=== PATIENT | male | born 1995 | race Caucasian/White ===

== ENCOUNTER 2019-07-26 07:19 | Observation (INO) ==
[2019-07-26] MEDS ORDERED: ONDANSETRON INJ 2 MG/ML 2 ML VIAL IV STA (07:34)
[2019-07-26] MEDS ORDERED: KETOROLAC 30 MG/ML VIAL IV STA (07:34)
--- NOTE | 2019-07-26 07:39 | Emergency Department Note ---
History of Present Illness General Chief complaint: Abdominal Pain Stated complaint: ABD PAIN Time Seen by Provider: 07/26/19 07:26 History of Present Illness Maximum Pain Intensity: 8 This is a 23-year-old male that presents to the emergency department via private vehicle accompanied by male with complaints of "abdominal pain". Patient states that yesterday evening he went to the [employer], and went to [employer] for dinner and had dumplings. He states that this is not out of the usual and then laid down around 10 PM and began with some left-sided abdominal pain. This was associated by nausea. He denies any spicy foods. No fevers, chills, vomiting. He states that it persists and nothing has been found to alleviate this. No exacerbating factors. He points to the left side of the abdomen as a location of pain. No abdominal surgeries. He notes some mild constipation throughout the evening with multiple trips to the bathroom to pass stool but no diarrhea. No blood in the stool. Home Medications Home Medications Medication Instructions Recorded Confirmed Type amlodipine 10 mg PO DAILY 07/26/19 07/26/19 History hydrocodone-acetaminophen [Vickery] 1 - 2 tab PO Q6H PRN #30 tab 07/26/19 Rx methylphenidate HCl [Ritalin] 10 mg PO DAILY 07/26/19 07/26/19 History propranolol 80 mg PO DAILY 07/26/19 07/26/19 History Allergies Allergy/AdvReac Type Severity Reaction Status Date / Time No Known Allergies Allergy Unverified 07/26/19 08:19 Past Med/Surg History Medical History HTN (hypertension) Morbid obesity Surgical History Hx of arthroscopy of knee S/P cystoscopy Social History Feels Safe at Home: Yes Smoking Status: Never smoker Review of Systems A total of 10 systems reviewed and were otherwise negative Physical Exam Vital Signs Vital Signs - 24 hr 07/26/19 07:25 07/26/19 09:19 07/26/19 11:00 Temperature 36.7 C Temperature Source Oral Sepsis Recent Fever Within 48 Hours No Sepsis New/Unexplained Change in Mental Status No Sepsis Action Taken by Nursing No Action Required Pulse Rate 72 Pulse Rate [Apical] 78 78 Respiratory Rate 20 16 16 Respiratory Effort / Characteristics Respiratory Depth Respiratory Pattern Blood Pressure 157/105 H Blood Pressure [Left Arm] 150/96 H 140/88 Blood Pressure [Right Arm] Blood Pressure Mean 122 Blood Pressure Mean [Left Arm] 114 105 Blood Pressure Mean [Right Arm] Blood Pressure Position [Right Arm] Pulse Oximetry 100 97 98 Oxygen Delivery Method Room Air Room Air Room Air 07/26/19 13:00 07/26/19 13:30 Temperature 37.2 C Temperature Source Oral Sepsis Recent Fever Within 48 Hours Sepsis New/Unexplained Change in Mental Status Sepsis Action Taken by Nursing Pulse Rate Pulse Rate [Apical] 83 78 Respiratory Rate 16 22 Respiratory Effort / Characteristics Non-Labored Spontaneous Respiratory Depth Normal Respiratory Pattern Regular Blood Pressure Blood Pressure [Left Arm] 142/79 H Blood Pressure [Right Arm] 146/86 H Blood Pressure Mean Blood Pressure Mean [Left Arm] 100 Blood Pressure Mean [Right Arm] 106 Blood Pressure Position [Right Arm] Lying Pulse Oximetry 97 99 Oxygen Delivery Method Room Air Room Air VITAL SIGNS - Vital signs and nursing notes were reviewed. Hypertensive, ot herwise stable. GENERAL -23-year-old male appearing his stated age who is in no acute distress but appears to be in pain in his holding the left side of the abdomen. Communicates well with provider and answers questions appropriately. SKIN - Without rashes. No meningeal or petechial rash. HEAD - NC/AT. EYES - Sclera anicteric. EARS - No deformities of external structures noted on gross examination bilaterally. NOSE - Midline and without cyanosis. No epistaxis or purulent drainage noted. MOUTH/OROPHARYNX - Without perioral cyanosis. NECK - Neck with FROM. Supple to palpation. LUNGS - Chest wall symmetric without accessory muscle use, intercostals retractions, or central cyanosis. Normal vesicular breath sounds CTA B/L. No wheezes, rales, or rhonchi appreciated. CARDIAC - RRR with S1/S2. No murmur, rubs, or gallops appreciated. ABDOMEN - Abdominal contour normal without pulsations or visible masses. BS normoactive all four quadrants. The abdomen is soft and nonrigid. There is re producible left lateral abdominal tenderness just to the left of the umbilicus and towards the left lower quadrant. No palpable masses, hepatosplenomegaly, or ascites noted. EXTREMITIES - No clubbing or peripheral cyanosis. No pretibial edema present. +5/5 strength noted in UE/LE bilaterally. NEUROLOGIC - Cranial nerves II through XII grossly intact. PSYCH - A&O, and cooperates fully with examiner. Pt is very pleasant and interacts well with examiner. Course Administered Medications Cefoxitin Sodium 3,000 mg/ (Dextrose) 65 mls @ 100 mls/hr IV ONCE STA Stop: 07/26/19 15:59 Last Admin: 07/26/19 14:17 Dose: 100 mls/hr Documented by: [id number] Ioversol (Optiray 320 125ml) 118 ml IV ONCE PRN PRN Reason: Interaction Checking Stop: 07/30/19 08:43 Last Admin: 07/26/19 08:46 Dose: 118 ml Documented by: [id number] Discontinued Medications Bupivacaine HCl/Epinephrine Bitart (Sensorcaine/Epinephrine 0.5% Mpf 1:200,000) Confirm Administered Dose 30 ml .ROUTE .STK-MED ONE Stop: 07/26/19 14:22 Last Admin: 07/26/19 15:22 Dose: 30 ml Documented by: [id number] Sodium Chloride (Nss 1000ml) 1,000 mls @ 999 mls/hr IV .Q1H1M JAS Stop: 07/26/19 08:45 Last Infusion: 07/26/19 08:47 Dose: 0 mls/hr Documented by: [id number] Admin: 07/26/19 07:44 Dose: 999 mls/hr Documented by: [id number] Ketorolac Tromethamine (Toradol) 30 mg IV NOW STA Stop: 07/26/19 07:35 Last Admin: 07/26/19 07:44 Dose: 30 mg Documented by: [id number] Morphine Sulfate (Morphine Sulfate) 4 mg IV NOW STA Stop: 07/26/19 11:02 Last Admin: 07/26/19 11:10 Dose: 4 mg Documented by: [id number] Morphine Sulfate (Morphine Sulfate) 4 mg IV NOW STA Stop: 07/26/19 13:18 Last Admin: 07/26/19 13:22 Dose: 4 mg Documented by: [id number] Ondansetron HCl (Zofran) 4 mg IV NOW STA Stop: 07/26/19 07:35 Last Admin: 07/26/19 07:44 Dose: 4 mg Documented by: [id number] Medical Decision Making Laboratory Data Result diagrams: 07/26/19 07:50 07/26/19 07:50 Lab Results 07/26/19 07/26/19 07/26/19 Range/Units 07:50 07:50 07:50 WBC 10.98 H (4.8-10.8) K/uL RBC 5.86 (4.7-6.1) M/uL Hgb 17.8 (14.0-18.0) g/dL Hct 49.6 (42-52) % MCV 84.6 (80-100) fL MCH 30.4 (25-34) pg MCHC 35.9 (32-36) g/dL RDW Std Deviation 40.9 (36.4-46.3) fL RDW Coeff of Osman 13.2 (11.5-14.5) % Plt Count 187 (130-400) K/uL MPV 9.3 (7.4-10.4) fL Immature Gran % (Auto) 0.3 % Neut % (Auto) 77.9 % Lymph % (Auto) 14.4 % [place] % (Auto) 6.9 % Eos % (Auto) 0.2 % Baso % (Auto) 0.3 % Immature Gran # (Auto) 0.03 H (0.00-0.02) K/uL Neut # (Auto) 8.56 H (1.4-6.5) K/uL Lymph # (Auto) 1.58 (1.2-3.4) K/uL [place] # (Auto) 0.76 H (0.11-0.59) K/uL Eos # (Auto) 0.02 (0-0.5) K/uL Baso # (Auto) 0.03 (0-0.2) K/uL Sodium 137 (136-145) mmol/L Potassium 3.7 (3.5-5.1) mmol/L Chloride 104 (98-107) mmol/L Carbon Dioxide 27 (21-32) mmol/L Anion Gap 6.0 (3-11) BUN 15 (7-18) mg/dl Creatinine 0.99 (0.6-1.4) mg/dl Est Cr Clr Drug Dosing 161.0 ml/min Est GFR ( Amer) 122.2 Est GFR (Non-Af Amer) 105.4 BUN/Creatinine Ratio 15.2 (10-20) Glucose 93 (70-99) mg/dl Calcium 9.4 (8.5-10.1) mg/dl Magnesium 2.1 (1.8-2.4) mg/dl Total Bilirubin 0.6 (0.2-1) mg/dl AST 24 (15-37) U/L ALT 50 (12-78) U/L Alkaline Phosphatase 82 (45-117) U/L Total Protein 8.5 H (6.4-8.2) gm/dl Albumin 4.3 (3.4-5.0) gm/dl Globulin 4.2 H (2.5-4.0) gm/dl Albumin/Globulin Ratio 1.0 (0.9-2) Lipase 150 (73-393) U/L Urine Color Yellow Urine Appearance Clear (Clear) Urine pH 6.5 (4.5-7.5) Ur Specific [place] 1.026 (1.000-1.030) Urine Protein Negative (Negative) Urine Glucose (UA) Negative (Negative) Urine Ketones Negative (Negative) Urine Blood 2+ H (Negative) Urine Nitrite Negative (Negative) Urine Bilirubin Negative (Negative) Urine Urobilinogen Negative (Negative) Ur Leukocyte Esterase Negative (Negative) Urine WBC (Auto) 0 (0-5) /hpf Urine RBC (Auto) >30 H (0-4) /hpf U Hyaline Cast (Auto) 1-5 (0-5) /lpf U Epithel Cells (Auto) 0-5 (0-5) /lpf Urine Bacteria (Auto) Negative (Negative) Imaging Data Radiologist's Impression: CT abd pelvis IV con only CLINICAL HISTORY: Left-sided abdominal pain COMPARISON STUDY: None. TECHNIQUE: The patient was scanned in a dynamic helical fashion during intravenous administration of 118 cc of Optiray 320. A dose lowering technique was utilized adhering to the principles of ALARA. CT DOSE: 1883.76 mGy.cm FINDINGS: Lower chest: The heart is normal in size and configuration, without pericardial effusion. The lung bases and pleural spaces are clear. Liver: There is suspected mild hepatic steatosis. No focal hepatic masses are visualized. The portal vein and hepatic veins appear patent. Gallbladder: Unremarkable. Spleen: Normal in size and attenuation. Pancreas: Unremarkable. Adrenal glands: Unremarkable. Kidneys: There is symmetric renal cortical enhancement. The kidneys are normal in size without hydronephrosis. Bowel: There are no transition zones indicate bowel obstruction. There is no evidence of acute diverticulitis. There is an abnormal thick-walled appendix measuring 17 mm in diameter. In the setting of right-sided abdominal pain the findings are indicative of acute appendicitis. Please correlate clinically as the reported history was that of left-sided abdominal pain. Peritoneum: There is no intraperitoneal free air or abdominal ascites. There is a tiny fat-containing umbilical hernia Vasculature: The abdominal aorta is normal in course and caliber. Adenopathy: None. Pelvic viscera: The bladder, and pelvic viscera are unremarkable. Skeletal structures: There is a T12-L1 disc osteophyte complex, with secondary mild spinal canal narrowing IMPRESSION: 1. No evidence of bowel obstruction. No evidence of free air 2. Abnormal thick-walled appendix measuring 17 mm in diameter. Although the findings are suspicious for appendicitis, the patient's pain was indicated to be left-sided. Clinical correlation and surgical consultation should be considered in follow-up. Electronically signed by: Prince Lujan M.D. 07/26/2019 9:00 AM MDM Narrative Patient was seen and evaluated as above in room A11. Review was performed of nursing notes and vital signs. After obtaining a thorough history and physical examination the above work up was performed. He presents to us today with left- sided abdominal pain. He is nontoxic on exam. Other than being hypertensive his vital signs are stable. His abdomen is soft and not rigid. Labs were drawn. Minimal leukocytosis of 10.94 without significant anemia. No emergent metabolic disturbance. Urinalysis reveals some microscopic blood. No evidence of infection within the urine. He was medicated with IV Toradol, Zofran and fluids. He did not want any opiate or narcotic medication initially. He was reevaluated with minimal relief from the Toradol but again did not want any further medication pending the CT scan of the abdomen and pelvis which I believe is warranted to further evaluate for his abdominal discomfort at this time. Results as above. This is concerning for acute appendicitis although I will note that the patient's abdominal pain is on the left side. I did discuss this with the on-call general surgeon, Dr. Sung. He came to evaluate the patient. Patient was taken to the operative suite for further evaluation and nicole george. Morphine was provided while waiting here per patient request. In the evaluation and treatment of this patient the following differential diagnoses were entertained: Constipation, diverticulitis, testicular torsion, acute appendicitis, among others. Impression & Plan Acute appendicitis Discharge Plan Visit Data Chief Complaint: Abdominal Pain Stated Complaint: ABD PAIN ED Provider: Russel Fernandez ED Midlevel Provider: Jameson Andrade Discharge Problem: Acute appendicitis Patient Disposition: Being Evaluated by Surgeon Discharge Instructions Interventions: ED Discharge Assessment Last Done: 07/26/19 13:27
[2019-07-26] MEDS ORDERED: SODIUM CHLORIDE 0.9% 1000ML 1,000 ML IV SCH (07:45)
[2019-07-26 07:59] LABS: Basophils # (auto) 0.03 K/uL (0-0.2); Basophils % (auto) 0.3 %; Eosinophils # (auto) 0.02 K/uL (0-0.5); Eosinophils % (auto) 0.2 %; Hematocrit (blood only) 49.6 % (42-52); Hemoglobin 17.8 g/dL (14.0-18.0); Immature Granulocytes # (auto) 0.03 K/uL (0.00-0.02); Immature Granulocytes % (auto) 0.3 %; Lymphocytes # (auto) 1.58 K/uL (1.2-3.4); Lymphocytes % (auto) 14.4 %; Mean Corpuscular Hemoglobin 30.4 pg (25-34); Mean Corpuscular Hgb Conc 35.9 g/dL (32-36); Mean Corpuscular Volume 84.6 fL (80-100); Mean Platelet Volume 9.3 fL (7.4-10.4); Monocytes # (auto) 0.76 K/uL (0.11-0.59); Monocytes % (auto) 6.9 %; Neutrophils # (auto) 8.56 K/uL (1.4-6.5); Neutrophils % (auto) 77.9 %; Platelet Count 187 K/uL (130-400); RDW Coefficient of Variation 13.2 % (11.5-14.5); RDW Standard Deviation 40.9 fL (36.4-46.3); Red Blood Count 5.86 M/uL (4.7-6.1); White Blood Count 10.98 K/uL (4.8-10.8)
[2019-07-26 08:15] LABS: Albumin Level 4.3 gm/dl (3.4-5.0); BUN Creatinine Ratio 15.2 (10-20); Calcium 9.4 mg/dl (8.5-10.1); Est GFR (African American) 122.2; Est GFR (Non-African American) 105.4; Magnesium 2.1 mg/dl (1.8-2.4); Potassium 3.7 mmol/L (3.5-5.1)
[2019-07-26 08:16] LABS: Appearance Urine Clear (Clear); Bacteria Urine Automated Negative (Negative); Bilirubin Urine Negative (Negative); Blood Urine 2+ (Negative); Color Urine Yellow; Epithelial Cell Urine Auto 0-5 /lpf (0-5); Glucose Urine UA Negative (Negative); Ketones Urine Negative (Negative); Leukocyte Esterase Urine Negative (Negative); Nitrite Urine Negative (Negative); Protein Urine Negative (Negative); RBC Urine Automated >30 /hpf (0-4); Specific Gravity Urine 1.026 (1.000-1.030); Urobilinogen Urine Negative (Negative); WBC Urine Automated 0 /hpf (0-5); pH Urine 6.5 (4.5-7.5)
[2019-07-26 08:18] LABS: Bilirubin,Total 0.6 mg/dl (0.2-1); Globulin 4.2 gm/dl (2.5-4.0); Total Protein 8.5 gm/dl (6.4-8.2)
[2019-07-26] MEDS ORDERED: OPTIRAY 320 125ml IV PRN (08:44)
--- NOTE | 2019-07-26 09:02 | CT Scan Report ---
CT abd pelvis IV con only CLINICAL HISTORY: Left-sided abdominal pain COMPARISON STUDY: None. TECHNIQUE: The patient was scanned in a dynamic helical fashion during intravenous administration of 118 cc of Optiray 320. A dose lowering technique was utilized adhering to the principles of ALARA. CT DOSE: 1883.76 mGy.cm FINDINGS: Lower chest: The heart is normal in size and configuration, without pericardial effusion. The lung ba ses and pleural spaces are clear. Liver: There is suspected mild hepatic steatosis. No focal hepatic masses are visualized. The portal vein and hepatic veins appear patent. Gallbladder: Unremarkable. Spleen: Normal in size and attenuation. Pancreas: Unremarkable. Adrenal glands: Unremarkable. Kidneys: There is symmetric renal cortical enhancement. The kidneys are normal in size without hydron ephrosis. Bowel: There are no transition zones indicate bowel obstruction. There is no evidence of acute divert iculitis. There is an abnormal thick-walled appendix measuring 17 mm in diameter. In the setting of r ight-sided abdominal pain the findings are indicative of acute appendicitis. Please correlate clinica lly as the reported history was that of left-sided abdominal pain. Peritoneum: There is no intraperitoneal free air or abdominal ascites. There is a tiny fat-containing umbilical hernia Vasculature: The abdominal aorta is normal in course and caliber. Adenopathy: None. Pelvic viscera: The bladder, and pelvic viscera are unremarkable. Skeletal structures: There is a T12-L1 disc osteophyte complex, with secondary mild spinal canal narr owing IMPRESSION: 1. No evidence of bowel obstruction. No evidence of free air 2. Abnormal thick-walled appendix measuring 17 mm in diameter. Although the findings are suspicious f or appendicitis, the patient's pain was indicated to be left-sided. Clinical correlation and surgical consultation should be considered in follow-up. Electronically signed by: Prince Lujan M.D. 07/26/2019 9:00 AM
--- NOTE | 2019-07-26 10:11 | History & Physical Report ---
Date of Service July 26, 2019 Assessment & Plan (1) Acute appendicitis: discussed his diagnosis and options including lap/open appendectomy vs observation with IV antibiotics. discussed pros/cons of each Surgery risks: bleeding/infection/dvt/pe/mi/cva/injury to another organ/staple leaks etc...). observation risks: worsening infection/rupture/sepsis/recurrence of infection etc... he has concerns regarding being uninsured...will make every attempt to d/c following lap appy today as long as things are straight forward. questions answered. will proceed with lap appy today. (2) Morbid obesity: History of Present Illness Primary Care Provider: NO PCP pt began having pain around 10 pm last night. pain is lower midline to LLQ. could not sleep. presented to ER. CT shows acute appendicitis Allergies Allergy/AdvReac Type Severity Reaction Status Date / Time No Known Allergies Allergy Unverified 07/26/19 08:19 Home Medications Home Medications Medication Instructions Recorded Confirmed Type amlodipine 10 mg PO DAILY 07/26/19 07/26/19 History methylphenidate HCl [Ritalin] 10 mg PO DAILY 07/26/19 07/26/19 History propranolol 80 mg PO DAILY 07/26/19 07/26/19 History Past Med/Surg History Medical History HTN (hypertension) Surgical History Hx of arthroscopy of knee Social History Feels Safe at Home: Yes Smoking Status: Never smoker Review of Systems All systems reviewed & are unremarkable except as noted in HPI & below Physical Exam Constitutional: WD/WN, vitals as above no acute distress and not ill appearing Eyes: PERRL, conjunctivae normal, anicteric sclerae EOM intact bilaterally ENMT: external ear and nose normal, oropharynx normal Ears: no hearing impairment Neck: trachea midline, no thyromegaly Respiratory: normal respiratory effort; no respiratory distress and does not use accessory muscles Cardiovascular: Rate/Rhythm: regular rate and regular rhythm Gastrointestinal (Abdomen): soft. obese. +ttp LLQ. +guarding. +Rovsing Skin: no rashes, warm and dry Psychiatric: Orientation: alert, oriented x 3 and cooperative Results & Data Vital Signs (Past 12 Hours) Vital Signs Temp Pulse Resp BP Pulse Ox 07/26/19 07:25 36.7 C 72 20 157/105 H 100
[2019-07-26] MEDS ORDERED: MoRPHine SULFATE 4 MG/ML 1 ML CARP\\VIAL IV STA ×2 (11:01→13:17)
[2019-07-26] MEDS ORDERED: ATROPINE SULFATE 0.1 MG/ML 10ML SYR IV PRN (13:07)
[2019-07-26] MEDS ORDERED: ePHEDrine sulfate 50 MG/ML AMP IV PRN (13:07)
[2019-07-26] MEDS ORDERED: ONDANSETRON INJ 2 MG/ML 2 ML VIAL IV PRN ×2 (13:07→17:17)
--- NOTE | 2019-07-26 13:40 | Anesthesiology Consultation ---
Date of Service July 26, 2019 Assessment & Plan (1) Encounter for pre-operative examination: Chart Review Chart Review: Acceptable Risk for Surgery Consults Requested none ASA ASA3 Proposed Anesthesia Anesthesia Type: General Risk / Benefits Reviewed With: PT / POA / Parent / Guardian, Accepts Plan and Informed Consent Obtained History Surgery Operation Date: 07/26/19 13:00 Proposed Procedures p Laparoscopic Appendectomy - Elton Sung, Height/Weight Height: 5 ft 11 in Weight: 136.5 kg Allergies Allergy/AdvReac Type Severity Reaction Status Date / Time No Known Allergies Allergy Unverified 07/26/19 08:19 Medications Home Medications Medication Instructions Recorded Confirmed Last Taken amlodipine 10 mg PO DAILY 07/26/19 07/26/19 07/25/19 methylphenidate HCl [Ritalin] 10 mg PO DAILY 07/26/19 07/26/19 07/24/19 propranolol 80 mg PO DAILY 07/26/19 07/26/19 07/25/19 Active Medications Generic Name Dose Route Start Last Admin Trade Name Freq PRN Reason Stop Dose Admin Ioversol 118 ml 07/26/19 08:44 07/26/19 08:46 Optiray 320 125ml IV 07/30/19 08:43 118 ml ONCE PRN Administration Interaction Checking NPO Date Last Intake of Fluids: 07/26/19 Time Last Intake of Fluids: 04:30 Date Last Intake of Solids: 07/26/19 Time Last Intake of Solids: 03:30 Past Medical History Medical History HTN (hypertension) Morbid obesity Exercise / Class Metabolic Activity II 4-5 Yardwork/Stairs/Walk up hill Past Surgical History Surgical History Hx of arthroscopy of knee S/P cystoscopy Past Anesthesia History No Hx of Anesthesia Complications and No Family Hx of Anesthesia Complications History of PONV No Hx of PONV and No Hx of Motion Sickness Social History Smoking Status: Never smoker Physical Exam Vital Signs Last Vital Signs Temp 98.1 F 07/26/19 07:25 Pulse 83 07/26/19 13:00 Resp 16 07/26/19 13:00 BP 142/79 H 07/26/19 13:00 Pulse Ox 97 07/26/19 13:00 ENMT Mouth: no dentition abnormality Thyromental Distance: > or= 3.5 Finger Breadths Mallampati Class: III Neck normal visual inspection Respiratory normal respiratory effort Auscultation: lungs clear to auscultation bilaterally Cardiovascular Rate/Rhythm: regular rate and regular rhythm Testing Laboratory Results 07/26/19 07:50 07/26/19 07:50 Urine Color Yellow 07/26/19 07:50 Urine Appearance Clear (Clear) 07/26/19 07:50 Urine pH 6.5 (4.5-7.5) 07/26/19 07:50 Ur Specific [place] 1.026 (1.000-1.030) 07/26/19 07:50 Urine Protein Negative (Negative) 07/26/19 07:50 Urine Glucose (UA) Negative (Negative) 07/26/19 07:50 Urine Ketones Negative (Negative) 07/26/19 07:50 Urine Nitrite Negative (Negative) 07/26/19 07:50 Ur Leukocyte Esterase Negative (Negative) 07/26/19 07:50 Urine WBC (Auto) 0 /hpf (0-5) 07/26/19 07:50 Urine RBC (Auto) >30 /hpf (0-4) H 07/26/19 07:50 U Hyaline Cast (Auto) 1-5 /lpf (0-5) 07/26/19 07:50 U Epithel Cells (Auto) 0-5 /lpf (0-5) 07/26/19 07:50 Urine Bacteria (Auto) Negative (Negative) 07/26/19 07:50
[2019-07-26] MEDS ORDERED: fentaNYL citrate 100 MCG/2 ML VIAL ONE ×2 (13:57→15:55)
[2019-07-26] MEDS ORDERED: GLYCOPYRROLATE 0.2 MG/ML VIAL ONE (13:57)
[2019-07-26] MEDS ORDERED: MIDAZOLAM HCL 1 MG/ML 2ML VIAL ONE (13:57)
[2019-07-26] MEDS ORDERED: ONDANSETRON INJ 2 MG/ML 2 ML VIAL ONE (13:57)
[2019-07-26] MEDS ORDERED: NEOSTIGMINE METHYLSULFATE 5 MG/5 ML SYR ONE (13:57)
[2019-07-26] MEDS ORDERED: LIDOCAINE HCL 2% 2 ML VIAL/AMP(20MG/ML) INFIL ONE (13:57)
[2019-07-26] MEDS ORDERED: DEXAMETHASONE SOD INJ 4 MG/ML VIAL ONE (13:57)
[2019-07-26] MEDS ORDERED: PROPOFOL IV EMULSION 10 MG/ML 20 ML VIAL IV ONE (13:57)
[2019-07-26] MEDS ORDERED: BUPIVACAINE/EPINEPHRINE 0.5% MPF 1:200,000 30 ML VIAL ONE (14:21)
[2019-07-26] MEDS ORDERED: ROCURONIUM BROMIDE 10 MG/ML 5 ML VIAL ONE (14:56)
[2019-07-26] MEDS ORDERED: cefOXitin 3,000 MG in DEXTROSE 5% 50 ML IV STA (15:21)
[2019-07-26] MEDS ORDERED: KETOROLAC 30 MG/ML VIAL ONE (15:29)
[2019-07-26] MEDS: fentaNYL citrate 100 MCG/2 ML VIAL IV PRN ×4 (15:56→16:11)
--- NOTE | 2019-07-26 15:56 | Operative Report ---
PG Post Operative Report Pre & Post Diagnosis Operation Date: 07/26/19 13:00 Pre-Op Diagnosis: Acute appendicitis Post-Op Diagnosis: Acute appendicitis I identified the patient and participated in the time-out.: Yes Procedure Operation Date: 07/26/19 13:00 Actual Procedures p Laparoscopic Appendectomy(Not Applicable) - Elton Sung DO Surgeon Elton Sung DO Quality Assurance Supervisor Chassis n/a Estimated Blood Loss 20 Findings Consistent with Post-Op Diagnosis Specimens appendix Description of Procedure After informed consent was obtained the patient was taken to the operating room placed in supine position. After successful intubation the abdomen was shaved and sterilely prepped and draped in usual fashion. I began with an infraumbilical incision with an 11 blade scalpel and carried this down through the soft tissues and cautery. The anterior rectus fascia was opened using cautery and two #0 Vicryl stay sutures were placed. Peritoneum was elevated with Randi clamps and incised under direct vision using a Metzenbaum scissor. A finger sweep was performed. A 12 mm Whipple trocar was placed in the abdomen was insufflated to 20 mmHg. The laparoscope was inserted and the abdomen was examined in 360 degrees. A left lower quadrant 12 mm trocar a suprapubic 5 mm trocar and eventually a second right lower quadrant 12 mm port would all be placed under direct vision. The patient was placed in a Trendelenburg position and air planed to the left. His body habitus made this an extremely difficult case. He had a lot of intra-abdominal adipose tissue making visualization and manipulation of the organs difficult. Nonetheless we were able to identify the appendix which was retrocecal. I had to take down some of the lateral white line of Toldt so that I could roll the cecum medially. The appendix was massively dilated and inflammed. Upon grasping the appendix it perforated releasing a small amount of purulent fluid into the right lower quadrant. Eventually I was able to take a [place] dissector and create a small window in the mesentery of the appendix right at its base with the cecum. This was transected using a AMAYA purple cartridge linear stapler. This required me to take out the appendix in 2 pieces. After transecting the proximal portion of the mesentery I placed the proximal two thirds of the appendix and mesentery into an Endo Catch bag and removed them from the right lower quadrant trocar site. I then used the LigaSure device to take down the remainder of the mesoappendix. The tip the appendix was then placed into a second Endo Catch bag and removed as well. There was adequate hemostasis. Thorough irrigation of the pelvis and right lower quadrant was performed. We ran the bowel backwards for several feet and looked in all 4 quadrants and saw no other gross abnormalities. A 10 flat Kevin-Burgos drain was placed into the right lower quadrant and brought out through the right lower quadrant trocar site and secured to the skin using 2-0 nylon. All the trochars were removed and the abdomen was desufflated. The fascia of the camera port was closed using 0 Vicryl in [id number] fashion. All the wounds were irrigated and closed using 4-0 Monocryl. Marcaine was injected around them for postoperative analgesia. Skin glue was used as a dressing. The patient was awakened, extubated and transferred recovery in stable condition. I attest to the content of the Intraoperative Record and any orders documented therein. Any exceptions are noted below.
--- NOTE | 2019-07-26 16:53 | Anesthesiology Progress Note ---
Date of Service July 26, 2019 Anesthesia Post Procedure Vital Signs Vital Signs: Temp Pulse Pulse Resp BP BP BP 07/26/19 16:46 63 18 125/79 07/26/19 16:35 99.3 F 69 18 127/79 07/26/19 16:25 75 16 139/95 07/26/19 16:15 71 20 140/92 07/26/19 16:05 71 18 136/80 07/26/19 15:55 73 20 112/95 07/26/19 15:47 96.4 F L 73 18 122/95 07/26/19 13:30 99.0 F 78 22 146/86 H 07/26/19 13:00 83 16 142/79 H 07/26/19 11:00 78 16 140/88 07/26/19 09:19 78 16 150/96 H 07/26/19 07:25 98.1 F 72 20 157/105 H Pulse Ox 07/26/19 16:46 94 07/26/19 16:35 93 07/26/19 16:25 98 07/26/19 16:15 100 07/26/19 16:05 98 07/26/19 15:55 99 07/26/19 15:47 98 07/26/19 13:30 99 07/26/19 13:00 97 07/26/19 11:00 98 07/26/19 09:19 97 07/26/19 07:25 100 Pain Intensity Left Abdomen: Pain Intensity: 8 Abdomen: Pain Intensity: 3 Transfer of Care Handoff Completed per policy Notes Mental Status: alert / awake / arousable and participated in evaluation Patient Amnestic to Procedure: Yes Nausea / Vomiting: adequately controlled Pain: adequately controlled Airway Patency, RR, SpO2: stable & adequate BP & HR: stable & adequate Hydration State: stable & adequate Anesthetic Complications: no major complications apparent and Pt Satisfied with anesthetic care
[2019-07-26] MEDS ORDERED: PIPERACILL/TAZOBAC CONSULT ACTIVE PRN (17:17)
[2019-07-26] MEDS ORDERED: MoRPHine SULFATE 10 MG/ML CARP/VIAL IV PRN (17:17)
[2019-07-26] MEDS ORDERED: HYDROCODONE/ACETAMOPHEN 5/325MG TAB PO PRN (17:17)
[2019-07-26] MEDS ORDERED: MoRPHine SULFATE 4 MG/ML 1 ML CARP\\VIAL IV PRN (17:17)
[2019-07-26] MEDS: HYDROCODONE/ACETAMOPHEN 5/325MG TAB PO PRN ×2 (17:44→21:28)
[2019-07-26] MEDS ORDERED: PIPERACILLIN/TAZOBACTAM 4.5 GM in DEXTROSE 5% 100 ML IV ONE (18:00)
[2019-07-26] MEDS: LACTATED RINGER'S 1,000 ML IV SCH (18:08)
[2019-07-26] MEDS: IBUPROFEN 600 MG TAB PO PRN (20:25)
[2019-07-26] MEDS: PIPERACILLIN/TAZOBACTAM 3.375 GM in DEXTROSE 5% 100 ML IV SCH (22:00)
[2019-07-27] MEDS: LACTATED RINGER'S 1,000 ML IV SCH ×3 (01:56→22:13)
[2019-07-27] MEDS: HYDROCODONE/ACETAMOPHEN 5/325MG TAB PO PRN ×4 (01:56→15:47)
[2019-07-27 05:54] LABS: Basophils # (auto) 0.01 K/uL (0-0.2); Basophils % (auto) 0.1 %; Hematocrit (blood only) 42.6 % (42-52); Hemoglobin 15.2 g/dL (14.0-18.0); Immature Granulocytes # (auto) 0.03 K/uL (0.00-0.02); Immature Granulocytes % (auto) 0.2 %; Lymphocytes # (auto) 0.96 K/uL (1.2-3.4); Lymphocytes % (auto) 5.2 %; Mean Corpuscular Hemoglobin 30.4 pg (25-34); Mean Corpuscular Hgb Conc 35.7 g/dL (32-36); Mean Corpuscular Volume 85.2 fL (80-100); Mean Platelet Volume 9.4 fL (7.4-10.4); Monocytes # (auto) 1.75 K/uL (0.11-0.59); Monocytes % (auto) 9.6 %; Neutrophils # (auto) 15.54 K/uL (1.4-6.5); Neutrophils % (auto) 84.9 %; Platelet Count 168 K/uL (130-400); RDW Coefficient of Variation 13.4 % (11.5-14.5); RDW Standard Deviation 41.8 fL (36.4-46.3); White Blood Count 18.29 K/uL (4.8-10.8)
[2019-07-27] MEDS: PIPERACILLIN/TAZOBACTAM 3.375 GM in DEXTROSE 5% 100 ML IV SCH ×3 (07:01→22:07)
--- NOTE | 2019-07-27 08:07 | Anesthesiology Progress Note ---
Date of Service July 27, 2019 Anesthesia Post Procedure Vital Signs Vital Signs: Temp Pulse Pulse Resp BP BP Pulse Ox 07/27/19 07:40 37.3 C 92 H 16 123/81 93 07/27/19 04:03 37.1 C 81 16 143/79 H 93 07/26/19 23:58 37.2 C 07/26/19 23:04 37.8 C H 93 H 16 118/69 92 07/26/19 20:00 37.0 C 89 18 112/74 92 07/26/19 19:53 37.3 C 96 H 16 120/76 91 07/26/19 19:01 37.3 C 86 16 112/69 86 L 07/26/19 18:04 37.1 C 92 H 18 128/85 92 07/26/19 17:30 37.1 C 90 16 122/82 90 07/26/19 17:00 37.2 C 84 16 127/81 93 07/26/19 16:46 63 18 125/79 94 07/26/19 16:35 37.4 C 69 18 127/79 93 07/26/19 16:25 75 16 139/95 98 07/26/19 16:15 71 20 140/92 100 07/26/19 16:05 71 18 136/80 98 07/26/19 15:55 73 20 112/95 99 07/26/19 15:47 35.8 C L 73 18 122/95 98 07/26/19 13:30 37.2 C 78 22 146/86 H 99 07/26/19 13:00 83 16 142/79 H 97 07/26/19 11:00 78 16 140/88 98 07/26/19 09:19 78 16 150/96 H 97 Pain Intensity Left Abdomen: Pain Intensity: 6 Abdomen: Pain Intensity: 6 Notes Mental Status: alert / awake / arousable Patient Amnestic to Procedure: Yes Nausea / Vomiting: adequately controlled Pain: improving with treatment Airway Patency, RR, SpO2: stable & adequate BP & HR: stable & adequate Hydration State: stable & adequate Anesthetic Complications: no major complications apparent
--- NOTE | 2019-07-27 08:24 | Surgery Progress Note ---
Date of Service July 27, 2019 Assessment & Plan (1) Acute appendicitis: POD 1 lap appy WBC elevated 18,000 keep on IV abx today advance diet Subjective hungry, some pain overnight Physical Exam Gastrointestinal (Abdomen): Inspection/Auscultation: abdomen not distended Percussion/Palpation: abdomen soft FOSTER 150 total serosang Results & Data Vital Signs (Past 12 Hours) Vital Signs Temp Pulse Resp BP Pulse Ox 07/27/19 07:40 37.3 C 92 H 16 123/81 93 07/27/19 04:03 37.1 C 81 16 143/79 H 93 07/26/19 23:58 37.2 C 07/26/19 23:04 37.8 C H 93 H 16 118/69 92 PG Care Time/CCT Total # of Minutes Spent Total Time Spent with Patient: Total time spent is greater than 50% in coordination of care (as documented) at patient's floor/unit and/or counseling patient:
[2019-07-27] MEDS: CALCIUM CARBONATE 500 MG CHEWABLE TAB PO PRN ×2 (09:28→14:28)
[2019-07-27] MEDS: PANTOprazole 40 MG TAB PO SCH (09:28)
[2019-07-27] MEDS: METHYLPHENIDATE HCL 10 MG TABLET PO SCH (09:29)
[2019-07-27] MEDS: AMLODIPINE BESYLATE 5 MG TAB PO SCH (09:31)
[2019-07-27] MEDS: PROPRANOLOL HCL LA 80 MG CAPCR PO SCH (09:32)
[2019-07-27] MEDS: POLYETHYLENE (MIRALAX) 17 GM PACK PO SCH (13:33)
[2019-07-27] MEDS: DOCUSATE SODIUM 100 MG CAP PO SCH (21:01)
[2019-07-27] MEDS: IBUPROFEN 600 MG TAB PO PRN (21:04)
[2019-07-28] MEDS: HYDROCODONE/ACETAMOPHEN 5/325MG TAB PO PRN ×2 (04:49→09:09)
[2019-07-28 05:46] LABS: Basophils # (auto) 0.01 K/uL (0-0.2); Basophils % (auto) 0.1 %; Eosinophils # (auto) 0.02 K/uL (0-0.5); Eosinophils % (auto) 0.1 %; Hematocrit (blood only) 40.8 % (42-52); Hemoglobin 14.2 g/dL (14.0-18.0); Immature Granulocytes # (auto) 0.03 K/uL (0.00-0.02); Immature Granulocytes % (auto) 0.2 %; Lymphocytes # (auto) 1.32 K/uL (1.2-3.4); Lymphocytes % (auto) 9.9 %; Mean Corpuscular Hemoglobin 29.9 pg (25-34); Mean Corpuscular Hgb Conc 34.8 g/dL (32-36); Mean Corpuscular Volume 85.9 fL (80-100); Mean Platelet Volume 9.3 fL (7.4-10.4); Monocytes # (auto) 1.58 K/uL (0.11-0.59); Monocytes % (auto) 11.8 %; Neutrophils # (auto) 10.41 K/uL (1.4-6.5); Neutrophils % (auto) 77.9 %; Platelet Count 151 K/uL (130-400); RDW Coefficient of Variation 13.7 % (11.5-14.5); RDW Standard Deviation 43.6 fL (36.4-46.3); Red Blood Count 4.75 M/uL (4.7-6.1); White Blood Count 13.37 K/uL (4.8-10.8)
[2019-07-28 06:24] LABS: BUN Creatinine Ratio 10.1 (10-20); Calcium 8.6 mg/dl (8.5-10.1); Creatinine Clr Calc Pharmacy 173.2 ml/min; Est GFR (African American) 133.5; Est GFR (Non-African American) 115.2; Potassium 3.6 mmol/L (3.5-5.1)
[2019-07-28] MEDS: PIPERACILLIN/TAZOBACTAM 3.375 GM in DEXTROSE 5% 100 ML IV SCH (06:28)
--- NOTE | 2019-07-28 07:39 | Surgery Progress Note ---
Date of Service July 28, 2019 Assessment & Plan (1) Acute appendicitis: POD#2 laparoscopic appendectomy Tolerating diet and pain well managed + BM's WBC downtrending, 13 today from 18. Patient with low grade temp (100.2F), but no true fevers. Encourage ambulation and pulmonary toilet Will discuss with Dr. Sung converting patient to PO abx, d/c'ing FOSTER drain, and possible discharge to home today with close follow up. Subjective Patient with no acute events or complaints overnight. He is tolerating a regular diet without nausea/vomiting. Had some BM's overnight. Pain is well managed. Physical Exam Physical Exam: awake/alert Constitutional: no acute distress Respiratory: normal respiratory effort Gastrointestinal (Abdomen): Inspection/Auscultation: + abdominal surgical incision (with 2x2 gauze dressings overtop. ) and + abdominal surgical drain present (90cc serosang. output over 24 hours) surgical incisions with scant drainage on dressings- changed this AM. and some sangeetha-incisional ecchymosis Results & Data Vital Signs (Past 12 Hours) Vital Signs Temp Pulse Resp BP Pulse Ox 07/27/19 23:15 37.6 C H 07/27/19 22:55 37.9 C H 91 H 16 125/76 92 PG Care Time/CCT Total # of Minutes Spent Total Time Spent with Patient: Total time spent is greater than 50% in coordination of care (as documented) at patient's floor/unit and/or counseling patient:
[2019-07-28] MEDS: POLYETHYLENE (MIRALAX) 17 GM PACK PO SCH (09:10)
[2019-07-28] MEDS: DOCUSATE SODIUM 100 MG CAP PO SCH (09:10)
[2019-07-28] MEDS: PANTOprazole 40 MG TAB PO SCH (09:11)
[2019-07-28] MEDS: METHYLPHENIDATE HCL 10 MG TABLET PO SCH (09:12)
[2019-07-28] MEDS: PROPRANOLOL HCL LA 80 MG CAPCR PO SCH (09:13)
[2019-07-28] MEDS: AMLODIPINE BESYLATE 5 MG TAB PO SCH (09:13)
--- NOTE | 2019-07-28 09:41 | Discharge Summary ---
Date of Service July 28, 2019 Admission HPI Per Admitting Provider pt began having pain around 10 pm last night. pain is lower midline to LLQ. could not sleep. presented to ER. CT shows acute appendicitis Principal Diagnosis Acute appendicitis Discharge Exam awake/alert Respiratory normal respiratory effort Gastrointestinal (Abdomen) Inspection/Auscultation: + abdominal surgical incision surgical incision with 2x2 gauze and + tegaderm overtop with scant drainage. some sangeetha-incisional ecchymosis Discharge Data Allergies Allergy/AdvReac Type Severity Reaction Status Date / Time No Known Allergies Allergy Unverified 07/26/19 08:19 Consultations 07/26/19 17:17 Consult Case Management - Discharge Planning Routine Procedures Performed Operation Date: 07/26/19 13:00 Actual Procedures p Laparoscopic Appendectomy(Not Applicable) - Elton Sung, Ordered Studies 07/26/19 07:34 CT abd pelvis IV con only Stat Hospital Course (1) Acute appendicitis: This is a 23y M who presented to the [facility] ED on 07/26/19 with complaints of abdominal pain. Workup in the ED included a CT a/p which revealed findings concerning for acute appendicitis. WBC: 10.98. Patient was made NPO with IVF and started on sangeetha-operative antibiotics. He was subsequently taken to the OR for a laparoscopic appendectomy with Dr. Sung. The patient tolerated the procedure well, see operative report for full details. The patient recovered in the PACU and was transferred to the nursing floor in stable condition. Patient had a FOSTER drain left in place and was continued on IV Zosyn. On POD#1 WBC was 18, therefore he remained admitted for continuation of IV abx and ongoing monitoring. Diet was advanced as tolerated and activity encouraged. FOSTER drain serosanguineous. On POD#2 patient's WBC downtrending to 13.3. He was tolerating a regular diet and pain remained well controlled. His FOSTER drain was removed without issues. Surgical incisions intact. Patient was deemed stable for discharge to home. He was provided a prescription to complete 7 days of Augmentin. He was instructed to follow up in clinic within 7-10 days for a post op follow up. Total Time Total Time Spent Total Time Spent (In Minutes): 15 Discharge Plan Discharge Items Patient Disposition: Home - Self-Care Reason For Visit: ACUTE APPENDICITIS Discharge Diagnosis: acute appendicitis Activity: As commented below Lifting: No more than 10 pounds Bathing Comment: may shower. no tub soaks Exercise/Sports: Wait until after follow-up appointment Driving/Machine Use: do not resume driving while taking narcotics for pain Non-emergency contact: Surgeon Call non-emergency contact if: you have any medication questions, your temperature is above 101, your wound has increased redness, your wound has increased drainage and your wound pain has increased Follow-up/Referrals: Elton Sung, DO [Surgeon] - (Please call to schedule follow up in 1-2 weeks. You may call the office sooner if you have any questions/concerns.) PCP,NO [Primary Care Provider] - Diet: Regular Addtl Attending Provider Instructions: call [phone] with any questions or concerns and to schedule a follow up appointment. Please complete your full course of oral antibiotics Pending Studies at Discharge: Yes Studies:: pathology report Stand-Alone Forms: My [facility] Medications and DC Order Prescriptions: New hydrocodone-acetaminophen [[place]] 5-325 mg tablet 1 - 2 tab PO Q6H PRN (Reason: pain) Qty: 30 RF: 0 amoxicillin-pot clavulanate [Augmentin] 875-125 mg tablet 1 tab PO BID Qty: 14 RF: 0 Continued methylphenidate HCl [Ritalin] 10 mg Tablet 10 mg PO DAILY RF: 0 amlodipine 10 mg Tablet 10 mg PO DAILY RF: 0 propranolol 80 mg Capsule,Extended Release 24 Hr 80 mg PO DAILY RF: 0 Discharge Orders: Discharge Order (Routine); Ordered 07/28/19 Ordered By: Anupama Campbell Admission Data Admit Date/Time: 07/26/19 16:18 Attending Provider: Elton Sung Admit Provider: Elton Sung Primary Care Provider: [id number]
== END 2019-07-28 13:02 | disposition home or self-care (01) ==
LOC: ED 07:19 → ASU 13:27 → 3N 13:27